=== PATIENT | male | born 1970 | race Caucasian/White ===

== ENCOUNTER 2019-12-30 11:01 | Emergency (ER) | payer SELFPAY ==
[2019-12-30 13:58] VITALS: BP 128/78
[2019-12-30 14:06] LABS: Influenza A Molecular Negative (Negative); Influenza B Molecular Negative (Negative)
--- NOTE | 2019-12-30 14:50 | UC ---
Throat Pain/Nasal Fredy HPI - HPI Summary HPI Summary: 49-year-old male comes in with chief complaint of upper respiratory tract infection symptoms for 4 days. Symptoms started on 26 December 2019. Patient returned from and tripped to [facility] in [facility] on December 17, 2019. He has had a cough. Feels like the infection is gone down to his lungs. - History of Current Complaint Chief Complaint: UCGeneralIllness Stated Complaint: RESP Time Seen by Provider: 12/30/19 13:14 Pain Intensity: 1 - Allergies/Home Medications Allergies/Adverse Reactions: Allergies Allergy/AdvReac Type Severity Reaction Status Date / Time No Known Allergies Allergy Verified 12/30/19 13:22 Home Medications: Home Medications Ibuprofen TAB* [Motrin TAB* 600 MG] 600 mg PO Q6H PRN 12/30/19 [History Confirmed 12/30/19] PMH/Surg Hx/FS Hx/Imm Hx Previously Healthy: Yes - Surgical History Surgical History: Yes Surgery Procedure, Year, and Place: inguinal hernia 2003 - Family History Known Family History: Positive: Non-Contributory - Social History Alcohol Use: Occasionally Substance Use Type: None Smoking Status (MU): Never Smoked Tobacco Review of Systems All Other Systems Reviewed And Are Negative: Yes Constitutional: Positive: Other - SEE HPI Skin: Positive: Negative Eyes: Positive: Negative ENT: Positive: Nasal Discharge, Sinus Congestion Respiratory: Positive: Cough, Other - SEE HPI Cardiovascular: Positive: Negative Gastrointestinal: Positive: Negative Motor: Positive: Negative Neurovascular: Positive: Negative Musculoskeletal: Positive: Negative Neurological/Mental Status: Positive: Negative Psychological: Positive: Negative Is Patient Immunocompromised?: No Physical Exam Triage Information Reviewed: Yes Appearance: No Pain Distress, Well-Nourished, Ill-Appearing - MILD Vital Signs: Initial Vital Signs Temp 0 F 12/30/19 13:24 Pulse 0 12/30/19 13:24 Resp 0 12/30/19 13:24 BP 0/0 12/30/19 13:24 Pulse Ox 0 12/30/19 13:24 Vital Signs Reviewed: Yes Eye Exam: Normal Eyes: Positive: Conjunctiva Clear ENT: Positive: Pharyngeal erythema, Nasal congestion, Nasal drainage Neck: Positive: Supple Respiratory: Positive: Lungs clear, Normal breath sounds, No respiratory distress Cardiovascular: Positive: RRR Musculoskeletal: Positive: Strength Intact, ROM Intact Neurological: Positive: Alert, Muscle Tone Normal Psychological: Positive: Age Appropriate Behavior Skin Exam: Normal Throat Pain/Nasal Course/Dx - Course Course Of Treatment: Patient was sent by [facility] for Covid 19 testing. Strep and flu were negative patient will treat symptomatically for his upper respiratory tract infection symptoms and B and in-home isolation awaiting the results of the Covid 19. Patient's to get reevaluated if worsening or any questions or concerns. - Differential Dx/Diagnosis Provider Diagnosis: Upper respiratory infection Discharge ED - Sign-Out/Discharge Documenting (check all that apply): Patient Departure All imaging exams completed and their final reports reviewed: No Studies - Discharge Plan Condition: Stable Disposition: HOME Patient Education Materials: Upper Respiratory Infection (ED), Viral Syndrome ( ED) Referrals: [facility] [place] [place] [Outside] Additional Instructions: PLACE YOURSELF IN HOME ISOLATION. [facility] WILL CONTACT YOU. CONTACT THEM TOMORROW IF YOU HAVE NOT HEARD FROM THEM. FOLLOW UP WITH YOUR DOCTOR IF NOT COMPLETELY IMPROVED. GO TO THE EMERGENCY DEPARTMENT IF NOT IMPROVED OR WORSE OR ANY QUESTIONS OR CONCERNS. - Billing Disposition and Condition Condition: STABLE Disposition: Home
== END 2019-12-30 15:05 | disposition home or self-care (01) ==
LOC: UCEAST 11:01
DX: J06.9 Acute upper respiratory infection, unspecified (principal)
CPT/HCPCS: 87651; 99201; G0463

== ENCOUNTER 2024-08-30 11:35 | Observation (INO) ==
[2024-08-30 12:36] LABS: ABS Lymphocytes 0.8 10^3/uL (1.0-4.8); ABS Monocytes 0.4 10^3/uL (0.0-1.1); ABS Neutrophils 7.9 10^3/uL (1.5-7.6); Hematocrit 44.8 % (38-53); Hemoglobin 15.2 g/dL (13.2-16.3); Lymphocyte % 8.4 %; Mean Corpuscular Hemoglobin 30.9 pg (27-33); Mean Corpuscular Volume 90.7 fL (80-97); Mean Platelet Volume 7.6 fL (7.5-11.2); Platelet Count 238 10^3/uL (150-450); Red Blood Count 4.94 10^6/uL (4.06-5.63); Red Cell Distribution Width 13.2 % (12-17); White Blood Count 9.1 10^3/uL (3.6-10.2)
[2024-08-30 12:44] LABS: INR 1.01 (0.85-1.14)
[2024-08-30 13:15] LABS: Albumin 4.6 g/dL (3.2-5.2); Albumin/Globulin Ratio 1.6 (1-3); Calcium 9.7 mg/dL (8.6-10.3); Creatinine, Serum 0.98 mg/dL (0.67-1.17); Globulin 2.8 g/dL (2-4); Potassium 4.6 mmol/L (3.5-5.0); Total Bilirubin 0.8 mg/dL (0.2-1.0); Total Protein 7.4 g/dL (6.4-8.9); eGFR CKD-EPI 92.2 (>60)
[2024-08-30] MEDS: Iohexol 350 (CONTRAST) 500 ML MDV IV ONE (14:03)
[2024-08-30] MEDS: Famotidine IV 10 MG/ML 2 ml VIAL (20 mg) IV SLOW PU ONE (14:09)
[2024-08-30] MEDS: Al Hydrox/Mg Hydrox/Simet LIQ 30 ML UDC PO ONE (14:09)
[2024-08-30 14:10] LABS: High Sensitivity Troponin 1 Hr 3 pg/mL (<20)
[2024-08-30] MEDS ORDERED: Ondansetron 4 mg VIAL 2 MG/ML 2 ml VIAL IV PRN (14:58)
[2024-08-30] MEDS: Lactated Ringers 1000 ml BAG 1,000 ML IV SCH (15:42)
[2024-08-31 07:41] LABS: Calcium 8.6 mg/dL (8.6-10.3); Creatinine, Serum 1.04 mg/dL (0.67-1.17); Potassium 4.5 mmol/L (3.5-5.0); eGFR CKD-EPI 85.9 (>60)
[2024-08-31 09:16] VITALS: BP 126/85
[2024-08-31] MEDS ORDERED: Sulfur Hexaflouride MICROSPHR 25 MG VIAL IV PRN (13:09)
[2024-08-31 13:44] LABS: TSH Ultra Thyroid Stim Horm 0.86 mcIU/mL (0.34-5.60)
[2024-08-31 13:55] LABS: Folate 8.52 ng/mL (5.90-24.80)
== END 2024-08-31 13:05 | disposition home or self-care (01) ==
LOC: EDHOLD 11:35 → ED 11:35 → MED 20:54
PROVIDERS: ADMIT Hospitalist; ATTEND Hospitalist